=== PATIENT | female | born 1970 | race Caucasian/White ===

== ENCOUNTER 2023-03-28 12:52 | Outpatient (OUT) | payer OTHER, SELFPAY ==
--- NOTE | 2023-03-28 | RT_ITS ---
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 Findings were considered accurate and reproducible. No bronchodilator was administered due to normal spirometric values. No prior studies available for comparison. Spirometry: -FEV1/FVC: Normal @ 80% -FEV1: Normal @ 99% -FVC: Normal @ 98% Lung volumes by plethysmography: -RV: Reduced @ 69% -TLC: Normal @ 98% Diffusion capacity: -DLCO: Low normal @ 81% when corrected for Hb 14.7g/dL Flow-volume loop: -Abnormal spikes in the expiratory limb suggestive of a glottic maneuver (e.g. cough) Impressions: -Normal spirometry. A reduced RV with normal TLC and diffusion capacity suggests an obesity pattern based on stated BMI of 52.2. Clinical correlation required. Electronically Signed On 03-28-2023 18:08:30 EDT by Michele Resendez
[2023-03-28 13:01] LABS: Hemoglobin 14.7 g/dL (12.0-16.0)
== END 2023-03-28 12:53 ==
LOC: CARD 12:53
PROVIDERS: PCP Internal Medicine
DX: I48.11 Longstanding persistent atrial fibrillation (principal)
CPT/HCPCS: 36415; 85018; 94010; 94726; 94729